=== PATIENT | female | born 1995 | race African-American/Black ===

== ENCOUNTER 2022-10-01 20:34 | Emergency (ER) | payer OTHER ==
[~2022-10-01] VITALS: Ht 165.1 cm; Wt 84.8 kg
--- NOTE | 2022-10-01 20:50 | NUR ---
, from home, c/o nausea vomiting since sunday admits on drinking on Sunday. PT A/OX4. TOLERATING R/A WELL WITH NO RESP DISTRESS. SAFETY MEASURES IN PLACE.
--- NOTE | 2022-10-01 21:14 | NUR ---
PROVIDED PT WITH URINE CUP; NOT ABLE TO URINATE AT THIS TIME. AWAITING URINE SAMPLE
--- NOTE | 2022-10-01 21:16 | NUR ---
Dr Evelin DANGELO at Pt's bedside for Eval
[2022-10-01] MEDS ORDERED: MORPHINE SULFATE INJ 4 MG/ML DISP.SYRIN ONE (21:23)
[2022-10-01] MEDS ORDERED: MAG HYDROX/AL HYDROX/SIMETH 30 ML UDC ONE (21:23)
[2022-10-01] MEDS ORDERED: ONDANSETRON HCL/PF 4 MG/2 ML VIAL ONE (21:23)
[2022-10-01] MEDS ORDERED: LIDOCAINE VISCOUS 2% UD 15 ML UDC ONE (21:23)
[2022-10-01] MEDS ORDERED: FAMOTIDINE/PF INJ 20 MG/2 ML VIAL IV ONE ×2 (21:24→21:30)
[2022-10-01] MEDS ORDERED: ONDANSETRON HCL/PF 4 MG/2 ML VIAL IVP ONE (21:30)
[2022-10-01] MEDS ORDERED: IV NS 0.9% 1,000 ML BAG IV ONE (21:30)
[2022-10-01] MEDS ORDERED: LIDOCAINE VISCOUS 2% UD 15 ML UDC MM ONE (21:30)
[2022-10-01] MEDS ORDERED: MORPHINE SULFATE INJ 2 MG/ML DISP.SYRIN IV ONE (21:30)
[2022-10-01] MEDS ORDERED: MAG HYDROX/AL HYDROX/SIMETH 30 ML UDC PO ONE (21:30)
[2022-10-01 21:52] LABS: BASOPHILS % (AUTO) 0.3 % (0.0-2.0); EOSINOPHILS % (AUTO) 0.6 % (0.0-6.0); HEMATOCRIT 39 % (33-45); HEMOGLOBIN 12.6 g/dL (11.5-14.8); LYMPHOCYTES # (AUTO) 1.3 K/uL (0.8-4.8); LYMPHOCYTES % (AUTO) 14.3 % (20.0-44.0); MEAN CORPUSCULAR HGB CONC 32 g/dl (31.0-36.0); MEAN CORPUSCULAR VOLUME 98 fL (82-100); MONOCYTES # (AUTO) 0.3 K/uL (0.1-1.30); MONOCYTES % (AUTO) 3.8 % (2.0-12.0); NEUTROPHILS # (AUTO) 7.1 K/uL (1.8-8.9); PLATELET COUNT (AUTO) 112 K/uL (150-450); WHITE BLOOD COUNT (AUTO) 8.7 K/uL (4.3-11.0)
[2022-10-01 22:01] LABS: CALCIUM, SERUM 9.9 mg/dL (8.5-10.1); CREATININE 0.9 mg/dL (0.6-1.3); POTASSIUM 3.7 mmol/L (3.5-5.1)
[2022-10-01 22:08] LABS: ALBUMIN 4.2 g/dL (3.4-5.0); BILIRUBIN,DIRECT 0.2 mg/dL (0.0-0.2); BILIRUBIN,TOTAL 1.1 mg/dL (0.2-1.0); TOTAL PROTEIN, SERUM 7.7 g/dL (6.4-8.2)
--- NOTE | 2022-10-01 22:12 | NUR ---
IV RFA #20G S/L BLOOD COLLECTED AND SENT TO LAB
[2022-10-01] MEDS ORDERED: MAGNESIUM OXIDE 400 MG TABLET PO ONE (22:30)
--- NOTE | 2022-10-01 22:55 | NUR ---
urine collected and sent to lab
[2022-10-01] MEDS ORDERED: diphenhydrAMINE HCL 50 MG/ML VIAL ONE (22:58)
[2022-10-01] MEDS ORDERED: KETOROLAC TROMETHAMINE INJ 30 MG/ML VIAL ONE (22:58)
[2022-10-01] MEDS ORDERED: diphenhydrAMINE HCL 50 MG/ML VIAL IV ONE (23:00)
[2022-10-01] MEDS ORDERED: KETOROLAC TROMETHAMINE INJ 30 MG/ML VIAL IV ONE (23:00)
[2022-10-01 23:28] LABS: BILIRUBIN,URINE 2+ (NEGATIVE); COLOR,URINE YELLOW (YELLOW); LEUKOCYTE ESTERASE ,URINE NEGATIVE (NEGATIVE); NITRITE, URINE NEGATIVE (NEGATIVE); PROTEIN,URINE 1+ mg/dl (NEGATIVE); UGLUCOSE NEGATIVE (NEGATIVE); UROBILINOGEN,URINE 0.2 EU/dL (0.2)
[2022-10-01 23:50] LABS: BACTERIA,URINE Many /HPF (None Seen); RBC,URINE 0-2 /HPF (0-2); SQUAMOUS EPITHELIAL CELL,UR Many /HPF (None Seen); WBC,URINE NONE SEEN /HPF (0-3)
[2022-10-01] MEDS ORDERED: MAGNESIUM OXIDE 400 MG TABLET ONE (23:51)
[2022-10-01] MEDS ORDERED: FAMO20TA8 PO (23:54)
[2022-10-01] MEDS ORDERED: DIPH50CA4 PO (23:54)
[2022-10-01] MEDS ORDERED: ONDA4TAB5 PO (23:54)
--- NOTE | 2022-10-02 00:21 | NUR ---
Patient discharged to home in stable condition. RX Written and verbal after care instructions given. Patient verbalizes understanding of instruction. IV removed. Catheter intact and site benign. Pressure and 4x4 applied to site. No bleeding noted. pt ambulatory with a steady gait
[2022-10-02 00:41] VITALS: BP 105/54
== END 2022-10-02 00:42 | disposition home or self-care (01) ==
LOC: ER 20:36
DX: K29.70 Gastritis, unspecified, without bleeding (principal); R10.9 Unspecified abdominal pain; F17.290 Nicotine dependence, other tobacco product, uncomplicated
CPT/HCPCS: 99284; 96374; 96375; 96361; 85025; 80048; 87086; 83690; 80076; 83735; 84703; 81001; 36415; J1200; J2270; J3490; J1885; J2405; J7030 ×2